=== PATIENT | male | born 2000 | race Caucasian/White ===

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

== ENCOUNTER 2018-05-20 18:31 | Emergency (ER) | payer MEDICAID ==
[~2018-05-20] VITALS: Ht 188 cm; Wt 78.9 kg
[2018-05-20 18:36] VITALS: BP_SYST 115
[2018-05-20] MEDS ORDERED: KETOROLAC TROMETHAMINE 60 MG/2 ML VIAL IM ONE (19:30)
[2018-05-20] MEDS ORDERED: IBUPROFEN 800 MG TABLET PO ONE (19:30)
[2018-05-20] MEDS ORDERED: IPRATROPIUM/ALBUTEROL SULFATE 3 ML AMPUL.NEB (DUONEB) INH ONE (20:00)
[2018-05-20 20:44] VITALS: BP_SYST 112
== END 2018-05-20 20:44 | disposition home or self-care (01) ==
LOC: SED 18:31
DX: J45.901 Unspecified asthma with (acute) exacerbation (principal); M79.10 Myalgia, unspecified site; R03.0 Elevated blood-pressure reading, without diagnosis of hypertension; Z79.899 Other long term (current) drug therapy; Z88.1 Allergy status to other antibiotic agents; Z88.0 Allergy status to penicillin
CPT/HCPCS: 36415; 71045; 86710; 99285; J7620

== ENCOUNTER 2018-07-28 14:20 | Emergency (ER) | payer MEDICAID ==
[~2018-07-28] VITALS: Ht 190.5 cm; Wt 68.0 kg
--- NOTE | 2018-07-28 14:20 | NUR ---
Patient to ER bed 3 to gown for evaluation. Side rails up. Assumed care.
[2018-07-28 14:28] VITALS: BP_SYST 117
--- NOTE | 2018-07-28 14:45 | NUR ---
Patient presents to ED for intermittent hematuria. Patient is s/p exploratory laparotomy in which he has a small bowel obstruction secondary to perforation. Surgery was performed at [facility]. The patient reports for the last week since his discharge, patient denies fevers, nausea, vomiting. Patient reports relatively normal bowel bladder habits but over the course of the last 3-4 days intermittent episodes of hematuria. He denies any dysuria and flank pain, fevers reports still having some pain at the surgical site but he feels this is normal healing. He denies any other chief complaints or associated symptoms including any scrotal or pelvic pain. Patient encouraged to give urine specimen.
--- NOTE | 2018-07-28 15:05 | NUR ---
ALEXANDRIA Dixon at bedside for examination and evaluation.
--- NOTE | 2018-07-28 15:35 | NUR ---
Urine dip received, and results given to Zack.
[2018-07-28 15:53] LABS: WHITE BLOOD COUNT (AUTO) 5.4 K/uL (4.5-11.0)
[2018-07-28 15:54] LABS: HEMATOCRIT 40.9 % (36-54); HEMOGLOBIN 13.7 g/dL (14.0-18.0); MEAN CORPUSCULAR HEMOGLOBIN 30 pg (27-31); MEAN CORPUSCULAR HGB CONC 34 % (32-36); MEAN CORPUSCULAR VOLUME 88 fL (79.0-98.0); RED BLOOD CELL COUNT(AUTO) 4.65 MIL/uL (4.2-6.2); RED CELL DISTRIBUTION WIDTH 11.6 % (9.0-15.0)
[2018-07-28 15:55] LABS: BASOPHILS % (AUTO) 0.8 % (0.0-2.0); EOSINOPHILS # (AUTO) 0.3 K/uL (0.0-0.4); EOSINOPHILS % (AUTO) 5.2 % (0.0-4.0); LYMPHOCYTES # (AUTO) 1.9 K/uL (1.0-5.5); LYMPHOCYTES % (AUTO) 34.8 % (20.5-51.5); MONOCYTES # (AUTO) 0.3 K/uL (0.0-1.0); MONOCYTES % (AUTO) 6.4 % (1.7-9.3); NEUTROPHILS # (AUTO) 2.8 K/uL (1.8-7.7); NEUTROPHILS % (AUTO) 52.8 % (40.0-70.0); PLATELET COUNT (AUTO) 278 K/uL (130-430)
[2018-07-28 16:07] LABS: POTASSIUM 5.1 mmol/L (3.5-5.1)
[2018-07-28 16:08] LABS: CALCIUM 9.6 mg/dL (8.4-11.0); CREATININE 0.95 mg/dL (0.55-1.30); TOTAL BILIRUBIN 0.5 mg/dL (0.0-1.0)
[2018-07-28 16:09] LABS: ALBUMIN 3.6 g/dL (3.4-4.8)
[2018-07-28 16:42] LABS: INR 1.1 (0.80-1.20)
--- NOTE | 2018-07-28 16:53 | NUR ---
Patient given written and verbal discharge instructions and verbalizes understanding. ER MD discussed with patient the results and treatment provided. Patient in stable condition. ID arm band removed. Rx of Macrobid given. Patient educated on pain management and to follow up with PMD. Pain Scale 1/10. Opportunity for questions provided and answered. Medication side effect fact sheet provided.
[2018-07-28 16:57] VITALS: BP_SYST 113
== END 2018-07-28 16:53 | disposition home or self-care (01) ==
LOC: SED 14:20
DX: R31.9 Hematuria, unspecified (principal); J45.909 Unspecified asthma, uncomplicated; Z88.0 Allergy status to penicillin; Z88.1 Allergy status to other antibiotic agents; Z79.899 Other long term (current) drug therapy
CPT/HCPCS: 36415; 80053; 85025; 85610-TC; 87086; 99283

== ENCOUNTER 2018-08-16 17:34 | Emergency (ER) | payer MEDICAID ==
[~2018-08-16] VITALS: Ht 190.5 cm; Wt 71.2 kg
[2018-08-16 18:06] VITALS: BP_SYST 132
[2018-08-16 18:49] VITALS: BP_SYST 130
== END 2018-08-16 18:40 | disposition home or self-care (01) ==
LOC: SED 17:34
DX: G89.18 Other acute postprocedural pain (principal); R10.9 Unspecified abdominal pain; J45.909 Unspecified asthma, uncomplicated; Z88.0 Allergy status to penicillin; Z88.1 Allergy status to other antibiotic agents; Z79.899 Other long term (current) drug therapy
CPT/HCPCS: 99281

== ENCOUNTER 2018-09-16 22:13 | Emergency (ER) | payer MEDICAID ==
[~2018-09-16] VITALS: Ht 190.5 cm; Wt 72.6 kg
[2018-09-16 22:20] VITALS: BP_SYST 123
[2018-09-17] MEDS ORDERED: methylPREDNISolone SOD SUCC/PF 62.5 MG/ML VIAL IM ONE (02:00)
[2018-09-17] MEDS ORDERED: IPRATROPIUM/ALBUTEROL SULFATE 3 ML AMPUL.NEB (DUONEB) INH ONE (02:00)
[2018-09-17 03:45] VITALS: BP_SYST 120
== END 2018-09-17 03:44 | disposition home or self-care (01) ==
LOC: SED 22:13
DX: J45.901 Unspecified asthma with (acute) exacerbation (principal); R51 Headache; M79.10 Myalgia, unspecified site; Z88.0 Allergy status to penicillin; Z88.1 Allergy status to other antibiotic agents; Z79.899 Other long term (current) drug therapy
CPT/HCPCS: 71045; 94640; 96372; 99283; J2930; J7620

== ENCOUNTER 2020-03-29 02:59 | Emergency (ER) | payer SELFPAY ==
[~2020-03-29] VITALS: Ht 188 cm; Wt 77.1 kg
[2020-03-29 03:05] VITALS: BP_SYST 109
--- NOTE | 2020-03-29 03:08 | NUR ---
Patient to ER bed 8 to gown for evaluation. Side rails up.
--- NOTE | 2020-03-29 03:09 | NUR ---
Patient came to ER with family. C/O bilateral hands pain x today. Patient reported slipped and fell, face down, used his hands to protect himself, no head injury. Patient denies used alcohol or drugs.
--- NOTE | 2020-03-29 03:11 | NUR ---
ER Dr. Chan at bedside examining patient.
--- NOTE | 2020-03-29 03:31 | NUR ---
X-ray at bedside.
[2020-03-29] MEDS ORDERED: KETOROLAC TROMETHAMINE 30 MG VIAL IM ONE (03:45)
--- NOTE | 2020-03-29 04:17 | NUR ---
Patient transported to radiology via gurney, accompanied by RT.
--- NOTE | 2020-03-29 04:24 | NUR ---
Patient walked out ER.
== END 2020-03-29 04:24 | disposition left against medical advice (07) ==
LOC: SED 02:59
DX: S62.91XA Unspecified fracture of right hand, initial encounter for closed fracture (principal); J45.909 Unspecified asthma, uncomplicated; Z79.899 Other long term (current) drug therapy; Z88.0 Allergy status to penicillin; Z88.1 Allergy status to other antibiotic agents; W18.39XA Other fall on same level, initial encounter; Y93.89 Activity, other specified; Y92.89 Other specified places as the place of occurrence of the external cause; Y99.8 Other external cause status
CPT/HCPCS: 29125; 73130; 99283; J1885

== ENCOUNTER 2022-11-16 22:41 | Emergency (ER) | payer BC, MEDICAID ==
[~2022-11-16] VITALS: Ht 193 cm; Wt 98.9 kg
[~2022-11-16 22:41] MED LIST changes: +MONT-47 PO; -MONT10TA22 PO
[2022-11-16 22:49] VITALS: BP_SYST 139
== END 2022-11-17 00:40 | disposition home or self-care (01) ==
LOC: SED 22:41
DX: R00.2 Palpitations (principal); F14.10 Cocaine abuse, uncomplicated; J45.909 Unspecified asthma, uncomplicated; Z88.0 Allergy status to penicillin; Z79.899 Other long term (current) drug therapy
CPT/HCPCS: 93005; 99283

== ENCOUNTER 2023-05-02 07:25 | Emergency (ER) | payer MEDICAID ==
[~2023-05-02] VITALS: Ht 193 cm; Wt 95.3 kg
[2023-05-02 07:25] VITALS: BP_SYST 137; PULSE 81; RESP 18; TEMP 98; O2SAT 99
[2023-05-02] MEDS ORDERED: IBUP-1969 PO (08:11)
[2023-05-02 08:37] VITALS: BP_SYST 137; PULSE 81; RESP 18; TEMP 98; O2SAT 99
== END 2023-05-02 08:39 | disposition home or self-care (01) ==
LOC: SED 07:25
DX: S62.336A Displaced fracture of neck of fifth metacarpal bone, right hand, initial encounter for closed fracture (principal); J45.909 Unspecified asthma, uncomplicated; Z88.0 Allergy status to penicillin; Z88.1 Allergy status to other antibiotic agents; Z79.899 Other long term (current) drug therapy; W22.09XA Striking against other stationary object, initial encounter; Y93.89 Activity, other specified; Y92.89 Other specified places as the place of occurrence of the external cause; Y99.8 Other external cause status
CPT/HCPCS: 99283

== ENCOUNTER 2023-05-22 08:41 | Emergency (ER) | payer MEDICAID ==
[~2023-05-22] VITALS: Ht 190.5 cm; Wt 97.5 kg
[~2023-05-22 08:41] MED LIST changes: +IBUP-1969 PO
[2023-05-22 08:55] VITALS: BP_SYST 142; PULSE 64; RESP 17; TEMP 98; O2SAT 97
[2023-05-22] MEDS ORDERED: LORazepam 1 MG TABLET PO ONE (09:15)
[2023-05-22 09:26] LABS: BILIRUBIN,URINE NEGATIVE (NEGATIVE); BLOOD, URINE NEGATIVE (NEGATIVE); CLARITY/URINE CLEAR (CLEAR); COLOR,URINE YELLOW (YELLOW); GLUCOSE,URINE NEGATIVE (NEGATIVE); KETONES,URINE NEGATIVE (NEGATIVE); LEUKOCYTE ESTERASE ,URINE NEGATIVE (NEGATIVE); NITRITE, URINE NEGATIVE (NEGATIVE); PROTEIN URINE NEGATIVE (NEGATIVE); UROBILINOGEN,URINE 0.2 (0.2-1.0)
[2023-05-22 09:45] LABS: BARBITURATE, URINE NEGATIVE (NEG <=200); BENZODIAZEPINE, URINE NEGATIVE (NEG <=150); CANNABINOID, URINE NEGATIVE (NEG <=50); COCAINE, URINE NEGATIVE (NEG <=150); METHAMPHETAMINES SCREEN,URINE NEGATIVE (NEG <=500); OPIATE, URINE NEGATIVE (NEG <=100); PHENCYCLIDINE SCREEN,URINE NEGATIVE (NEG <=25); UR TRICYCLIC ANTIDEPRESSANTS NEGATIVE (NEG <=300); URINE AMPHETAMINE NEGATIVE (NEG <=500); URINE METHADONE NEGATIVE (NEG <=200); URINE OXYCODONE SCREEN NEGATIVE (NEG <=100); URINE PROPOXYPHENE SCREEN NEGATIVE (NEG <=300)
[2023-05-22] MEDS ORDERED: LORA-259 PO (10:22)
[2023-05-22 10:31] VITALS: BP_SYST 125; PULSE 71; RESP 16; TEMP 97.6; O2SAT 98
== END 2023-05-22 10:32 | disposition home or self-care (01) ==
LOC: SED 08:41
DX: F41.9 Anxiety disorder, unspecified (principal); J45.909 Unspecified asthma, uncomplicated; Z88.0 Allergy status to penicillin; Z88.1 Allergy status to other antibiotic agents; Z79.899 Other long term (current) drug therapy
CPT/HCPCS: 80307; 81001; 81003; 93005; 99284

== ENCOUNTER 2023-06-19 05:32 | Emergency (ER) | payer MEDICAID ==
[~2023-06-19] VITALS: Ht 182.9 cm; Wt 98.4 kg
[~2023-06-19 05:32] MED LIST changes: +LORA-259 PO
[2023-06-19 05:41] VITALS: BP_SYST 145; PULSE 83; RESP 17; TEMP 97.8; O2SAT 98
== END 2023-06-19 05:50 | disposition home or self-care (01) ==
LOC: SED 05:32
DX: K20.90 Esophagitis, unspecified without bleeding (principal); R07.2 Precordial pain; J45.909 Unspecified asthma, uncomplicated; Z88.0 Allergy status to penicillin; Z88.1 Allergy status to other antibiotic agents; Z79.899 Other long term (current) drug therapy
CPT/HCPCS: 93005; 99283

== ENCOUNTER 2023-07-07 05:28 | Emergency (ER) | payer MEDICAID ==
[2023-07-07] MEDS ORDERED: DOXY100C5 PO (05:41)
[2023-07-07 05:45] VITALS: BP_SYST 111; PULSE 86; RESP 16; TEMP 98; O2SAT 97
== END 2023-07-07 07:20 | disposition home or self-care (01) ==
LOC: SED 05:28
DX: S10.96XA Insect bite of unspecified part of neck, initial encounter (principal); J45.909 Unspecified asthma, uncomplicated; Z88.0 Allergy status to penicillin; Z88.1 Allergy status to other antibiotic agents; Z79.899 Other long term (current) drug therapy; W57.XXXA Bitten or stung by nonvenomous insect and other nonvenomous arthropods, initial encounter; Y93.89 Activity, other specified; Y92.89 Other specified places as the place of occurrence of the external cause; Y99.8 Other external cause status
CPT/HCPCS: 99283